=== PATIENT | female | born 1985 | race Caucasian/White ===

== ENCOUNTER 2018-09-07 16:31 | Inpatient (IN) | payer MEDICAID, OTHER ==
--- NOTE | 2018-09-07 17:28 | ED ---
Psychiatric Complaint - HPI Summary HPI Summary: This pt is a 33 y/o female presenting to [facility] for a mental health evaluation. Pt reports she has hx of bipolar disorder and schizophrenia. Pt notes "I need a place to clear my head." Denies any SI or HI thoughts/plan. Pt has been unable to sleep and states "I need a nap or something." Pt is noncompliant with medications for mental health. - History Of Current Complaint Chief Complaint: EDMentalHealth Time Seen by Provider: 09/07/18 17:14 Hx Obtained From: Patient Onset/Duration: Lasting Days, Still Present Timing: Days Severity Currently: Severe Character: Manic Aggravating Factor(s): Medication Non-compliance Alleviating Factor(s): Nothing Related History: Positive For: Prior Psychiatric Issues Has Suicidal: Denies: Thoughts, With A Plan Has Homicidal: Denies: Thoughts, With A Plan - Allergies/Home Medications Allergies/Adverse Reactions: Allergies Allergy/AdvReac Type Severity Reaction Status Date / Time No Known Allergies Allergy Verified 09/07/18 16:49 PMH/Surg Hx/FS Hx/Imm Hx Psychiatric History: Reports: Hx Schizophrenia, Hx Bipolar Disorder Infectious Disease History: No Infectious Disease History: Denies: Traveled Outside the [place] in Last 30 Days - Family History Family History: Mother with paranoid schizophrenia. - Social History Alcohol Use: None Substance Use Type: Reports: None Smoking Status (MU): Never Smoked Tobacco Review of Systems Negative: Fever, Chills Psychological: Other - POS: manic Positive: Anxious. Negative: Depressed, Other - SI or HI thoughts/plan All Other Systems Reviewed And Are Negative: Yes Physical Exam - Summary Physical Exam Summary: Appearance: Well appearing, no pain distress Skin: warm, dry, reflects adequate perfusion Head/face: normal Eyes: EOMI, [place] ENT: normal Neck: supple, nontender Respiratory: CTA, breath sounds present Cardiovascular: RRR, pulses symmetrical Abdomen: nontender, soft Bowel: present Musculoskeletal: normal, strength/ROM intact Neuro: normal, sensory motor intact, A&Ox3 PSYCH: anxious on examination Triage Information Reviewed: Yes Vital Signs On Initial Exam: Initial Vitals Temp Pulse Resp BP Pulse Ox 99 F 145 22 150/95 98 09/07/18 16:44 09/07/18 16:44 09/07/18 16:44 09/07/18 16:44 09/07/18 16:44 Vital Signs Reviewed: Yes Diagnostics - Vital Signs Vital Signs Temp Pulse Resp BP Pulse Ox 09/07/18 16:44 99 F 145 22 150/95 98 - Laboratory Result Diagrams: 09/07/18 17:33 09/07/18 17:33 Lab Statement: Any lab studies that have been ordered have been reviewed, and results considered in the medical decision making process. Re-Evaluation - Re-Evaluation First Eval Re-Evaluation Time: 18:15 Comment: Pt is medically cleared. Course/Dx - Course Assessment/Plan: Pt is a 33 y/o female who presents to the ED for a mental health evaluation. Pt reports she has hx of bipolar disorder and schizophrenia. Pt notes "I need a place to clear my head." Denies any SI or HI thoughts/plan. Noncompliant with medications. Blood work, urinalysis, and toxicology were obtained. Pt was medically cleared. She is waiting for a MHE. Pt will be signed out to Dr. Corey, pending disposition, awaiting MHE. - Differential Dx/Clinical Impression Differential Diagnosis/HQI/PQRI: Positive: Acute Psychosis, Anxiety, Depression , Schizophrenia Provider Diagnosis: Acute psychosis, Depression Discharge - Sign-Out/Discharge Documenting (check all that apply): Sign-Out Patient Signing out patient TO: Naveed Corey - pending MHE and dispo - Discharge Plan Condition: Stable Referrals: No Primary Care Phys,NOPCP [Primary Care Provider] - - Billing Disposition and Condition Condition: STABLE - Attestation Statements Document Initiated by Scribe: Yes Documenting Scribe: Farzana Cristina Provider For Whom Scribe is Documenting (Include Credential): Christiano Roy MD Scribe Attestation: Farzana Pritchett, scribed for Christiano Roy MD on 09/07/18 at 1849. Scribe Documentation Reviewed: Yes Provider Attestation: The documentation as recorded by the Farzana warner accurately reflects the service I personally performed and the decisions made by me, Christiano Roy MD
[2018-09-07 17:46] LABS: ABS Basophils 0 10^3/ul (0-0.2); ABS Eosinophils 0 10^3/ul (0-0.6); ABS Lymphocytes 0.9 10^3/ul (1.0-4.8); ABS Monocytes 0.8 10^3/ul (0-0.8); ABS Neutrophils 8.8 10^3/ul (1.5-7.7); ABS Nucleated RBC 0 10^3/ul; Eosinophil % 0.1 % (0-6); Hematocrit 42 % (35-47); Hemoglobin 14.1 g/dl (12.0-16.0); Lymphocyte % 8.9 % (25-47); Mean Corpuscular HGB Conc 34 g/dl (31-36); Mean Corpuscular Hemoglobin 30 pg (27-31); Mean Corpuscular Volume 88 fL (80-97); Mean Platelet Volume 9.7 um3 (7.4-10.4); Nucleated Red Blood Cells % 0; Platelet Count 293 10^3/ul (150-450); Red Blood Count 4.73 10^6/ul (4.00-5.40); Red Cell Distribution Width 13 % (10.5-15); White Blood Count 10.6 10^3/ul (3.5-10.8)
[2018-09-07 17:51] LABS: Urine Appearance Clear; Urine Blood Negative (Negative); Urine Color Yellow; Urine Ketones Negative (Negative); Urine Protein Negative (Negative); Urine Specific Gravity 1.008 (1.010-1.030); Urine Urobilinogen Negative (Negative)
[2018-09-07 18:01] LABS: EGFR Non-African American 70.3 (>60)
[2018-09-07] MEDS ORDERED: OLANzapine TAB*ODT* 10 MG TAB PO ONE (19:09)
--- NOTE | 2018-09-07 19:13 | ED ---
Progress - Progress Note Progress Note: Patient signed out from Dr. Roy, pending MHE. Per MH drafting layout worker she has a dx of acute psychosis and depression. The pt will be signed out to Dr. Ashford upon shift change pending MHE. Re-Evaluation - Re-Evaluation First Eval Re-Evaluation Time: 18:15 Comment: Pt is medically cleared. Course/Dx - Course Course Of Treatment: Patient signed out from Dr. Roy, pending MHE. Per drafting layout worker she has a dx of acute psychosis and depression. The pt will be signed out to Dr. Ashford upon shift change pending MHE. - Diagnoses Provider Diagnoses: Acute psychosis, Depression Discharge - Sign-Out/Discharge Documenting (check all that apply): Sign-Out Patient Signing out patient TO: Padilla Ashford - Discharge Plan Referrals: No Primary Care Phys,NOPCP [Primary Care Provider] - - Attestation Statements Document Initiated by Scribe: Yes Documenting Scribe: José Licona Provider For Whom Scribe is Documenting (Include Credential): Naveed Corey MD Scribe Attestation: José Pritchett, scribed for Naveed Corey MD on 09/08/18 at 0705.
[2018-09-07] MEDS ORDERED: OLANzapine TAB* 5 MG ONE (19:23)
[2018-09-08] MEDS ORDERED: LORazepam TAB(*) 1 MG PO ONE (02:21)
--- NOTE | 2018-09-08 08:09 | ED ---
Progress - Progress Note Progress Note: Patient signed out from Dr. Corey pending MHE. Pt will be admitted to Dr. Coelho , with a final dx of acute psychosis. Course/Dx - Diagnoses Provider Diagnoses: Acute psychosis - Provider Notifications Discussed Care Of Patient With: Eric Coelho Time Discussed With Above Provider: 10:25 Instructed by Provider To: Admit As Inpatient - Spoke about pt's disposition. Discharge - Sign-Out/Discharge Documenting (check all that apply): Patient Departure - Admit, Receiving Sign- Out Receiving patient FROM: Naveed Corey - Discharge Plan Condition: Stable Disposition: ADMITTED TO [facility] Referrals: No Primary Care Phys,NOPCP [Primary Care Provider] - - Attestation Statements Document Initiated by Scribe: Yes Documenting Scribe: Claudine Sky Provider For Whom Scribe is Documenting (Include Credential): Padilla Ashford MD Scribe Attestation: Claudine Pritchett, scribed for Padilla Ashford MD on 09/08/18 at 1049.
--- NOTE | 2018-09-08 09:19 | PN ---
ED Flex Patient Progress Note Date of Service: 09/07/18 Subjective: This is a 33 year-old F who is pending admission to [facility] / transfer to another psychiatric facility / discharge to home / or being observed secondary to psychosis. Pt. examined in room 22 around 0830. She is sitting on floor wearing a green hat. She offers no complaints. Objective: Vitals: Most recent vital signs documented below. General NAD, Alert and oriented x3. Laboratory: Current laboratory results documented below. Assessment: Pending MHE and disposition. Plan: Pending psychiatric or medical consultation to observe / transfer / admit / discharge will follow up daily . Vital Signs Temp Pulse Resp BP Pulse Ox 97.8 F 114 16 127/86 100 09/08/18 07:30 09/08/18 07:40 09/08/18 07:40 09/08/18 07:40 09/08/18 07:40 Lab Results - Entire Visit 09/07/18 09/07/18 09/07/18 17:36 17:36 17:33 WBC RBC Hgb Hct MCV MCH MCHC RDW Plt Count MPV Neut % (Auto) Lymph % (Auto) [place] % (Auto) Eos % (Auto) Baso % (Auto) Absolute Neuts (auto) Absolute Lymphs (auto) Absolute Monos (auto) Absolute Eos (auto) Absolute Basos (auto) Absolute Nucleated RBC Nucleated RBC % Sodium 137 Potassium 3.4 L Chloride 103 Carbon Dioxide 23 Anion Gap 11 BUN 6 Creatinine 0.93 Est GFR ( Amer) 85.1 Est GFR (Non-Af Amer) 70.3 BUN/Creatinine Ratio 6.5 L Glucose 125 H Calcium 9.5 Total Bilirubin 0.40 AST 26 ALT 33 Alkaline Phosphatase 80 Total Protein 8.1 Albumin 4.4 Globulin 3.7 Albumin/Globulin Ratio 1.2 TSH 1.96 Urine Color Yellow Urine Appearance Clear Urine pH 6.0 Ur Specific [place] 1.008 L Urine Protein Negative Urine Ketones Negative Urine Blood Negative Urine Nitrate Negative Urine Bilirubin Negative Urine Urobilinogen Negative Ur Leukocyte Esterase Negative Urine Glucose Negative Salicylates < 2.50 Urine Opiates Screen None detected Acetaminophen < 15 Ur Barbiturates Screen None detected Ur Phencyclidine Scrn None detected Ur Amphetamines Screen None detected U Benzodiazepines Scrn None detected Urine Cocaine Screen None detected U Cannabinoids Screen None detected Serum Alcohol < 10 10/29/18 17:33 WBC 10.6 RBC 4.73 Hgb 14.1 Hct 42 MCV 88 MCH 30 MCHC 34 RDW 13 Plt Count 293 MPV 9.7 Neut % (Auto) 83.4 H Lymph % (Auto) 8.9 L [place] % (Auto) 7.3 H Eos % (Auto) 0.1 Baso % (Auto) 0.3 Absolute Neuts (auto) 8.8 H Absolute Lymphs (auto) 0.9 L Absolute Monos (auto) 0.8 Absolute Eos (auto) 0 Absolute Basos (auto) 0 Absolute Nucleated RBC 0 Nucleated RBC % 0 Sodium Potassium Chloride Carbon Dioxide Anion Gap BUN Creatinine Est GFR ( Amer) Est GFR (Non-Af Amer) BUN/Creatinine Ratio Glucose Calcium Total Bilirubin AST ALT Alkaline Phosphatase Total Protein Albumin Globulin Albumin/Globulin Ratio TSH Urine Color Urine Appearance Urine pH Ur Specific [place] Urine Protein Urine Ketones Urine Blood Urine Nitrate Urine Bilirubin Urine Urobilinogen Ur Leukocyte Esterase Urine Glucose Salicylates Urine Opiates Screen Acetaminophen Ur Barbiturates Screen Ur Phencyclidine Scrn Ur Amphetamines Screen U Benzodiazepines Scrn Urine Cocaine Screen U Cannabinoids Screen Serum Alcohol
[2018-09-08] MEDS ORDERED: Benzocaine/Menthol LOZ* 1 LOZENGE PO ONE (09:28)
[2018-09-08] MEDS ORDERED: Al Hydrox/Mg Hydrox/Simet LIQ* 30 ML UDC PO PRN (10:37)
[2018-09-08] MEDS ORDERED: Haloperidol TAB* 5 MG PO PRN (10:38)
--- NOTE | 2018-09-08 10:45 | PN ---
ED Flex Patient Progress Note Date of Service: 09/08/18 Subjective: 33 y.o. white female with bipolar history arrives with symptoms of psychosis. Does not appear able to care for herself. Objective: young white female, bizarre appearance and style of dress; hypertalkative, intrusive; denies SI Assessment: Unspecified Psychotic DO Plan: Admit to [facility]. Vital Signs Temp Pulse Resp BP Pulse Ox 97.8 F 114 16 127/86 100 09/08/18 07:30 09/08/18 07:40 09/08/18 07:40 09/08/18 07:40 09/08/18 07:40 Lab Results - Entire Visit 09/07/18 09/07/18 09/07/18 17:36 17:36 17:33 WBC RBC Hgb Hct MCV MCH MCHC RDW Plt Count MPV Neut % (Auto) Lymph % (Auto) [place] % (Auto) Eos % (Auto) Baso % (Auto) Absolute Neuts (auto) Absolute Lymphs (auto) Absolute Monos (auto) Absolute Eos (auto) Absolute Basos (auto) Absolute Nucleated RBC Nucleated RBC % Sodium 137 Potassium 3.4 L Chloride 103 Carbon Dioxide 23 Anion Gap 11 BUN 6 Creatinine 0.93 Est GFR ( Amer) 85.1 Est GFR (Non-Af Amer) 70.3 BUN/Creatinine Ratio 6.5 L Glucose 125 H Calcium 9.5 Total Bilirubin 0.40 AST 26 ALT 33 Alkaline Phosphatase 80 Total Protein 8.1 Albumin 4.4 Globulin 3.7 Albumin/Globulin Ratio 1.2 TSH 1.96 Urine Color Yellow Urine Appearance Clear Urine pH 6.0 Ur Specific [place] 1.008 L Urine Protein Negative Urine Ketones Negative Urine Blood Negative Urine Nitrate Negative Urine Bilirubin Negative Urine Urobilinogen Negative Ur Leukocyte Esterase Negative Urine Glucose Negative Salicylates < 2.50 Urine Opiates Screen None detected Acetaminophen < 15 Ur Barbiturates Screen None detected Ur Phencyclidine Scrn None detected Ur Amphetamines Screen None detected U Benzodiazepines Scrn None detected Urine Cocaine Screen None detected U Cannabinoids Screen None detected Serum Alcohol < 10 09/07/18 17:33 WBC 10.6 RBC 4.73 Hgb 14.1 Hct 42 MCV 88 MCH 30 MCHC 34 RDW 13 Plt Count 293 MPV 9.7 Neut % (Auto) 83.4 H Lymph % (Auto) 8.9 L [place] % (Auto) 7.3 H Eos % (Auto) 0.1 Baso % (Auto) 0.3 Absolute Neuts (auto) 8.8 H Absolute Lymphs (auto) 0.9 L Absolute Monos (auto) 0.8 Absolute Eos (auto) 0 Absolute Basos (auto) 0 Absolute Nucleated RBC 0 Nucleated RBC % 0 Sodium Potassium Chloride Carbon Dioxide Anion Gap BUN Creatinine Est GFR ( Amer) Est GFR (Non-Af Amer) BUN/Creatinine Ratio Glucose Calcium Total Bilirubin AST ALT Alkaline Phosphatase Total Protein Albumin Globulin Albumin/Globulin Ratio TSH Urine Color Urine Appearance Urine pH Ur Specific [place] Urine Protein Urine Ketones Urine Blood Urine Nitrate Urine Bilirubin Urine Urobilinogen Ur Leukocyte Esterase Urine Glucose Salicylates Urine Opiates Screen Acetaminophen Ur Barbiturates Screen Ur Phencyclidine Scrn Ur Amphetamines Screen U Benzodiazepines Scrn Urine Cocaine Screen U Cannabinoids Screen Serum Alcohol
[2018-09-08] MEDS ORDERED: chlorproMAZINE TAB* 50 MG PO PRN (15:32)
[2018-09-08] MEDS: OLANzapine TAB*ODT* 10 MG TAB PO SCH ×2 (18:22→21:54)
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
[2018-09-08] MEDS ORDERED: diPHENhydraMINE PO* 25 MG PO PRN (21:50)
[2018-09-08] MEDS ORDERED: diPHENhydraMINE PO* 25 MG ONE (22:14)
[2018-09-08] MEDS: LORazepam TAB(*) 1 MG PO PRN (23:56)
[2018-09-09] MEDS: GuaiFENesin DM* 5 ML UDC PO PRN ×4 (02:18→20:19)
[2018-09-09] MEDS: Montelukast Sodium TAB* 10 MG PO SCH (08:51)
[2018-09-09] MEDS ORDERED: DESOGESTREL ETHINYL ESTRADIOL PO SCH (09:00)
[2018-09-09] MEDS: Benzocaine/Menthol LOZ* 1 LOZENGE MT PRN ×4 (10:16→21:57)
[2018-09-09] MEDS: OLANzapine TAB*ODT* 5 MG PO SCH (10:16)
[2018-09-09] MEDS ORDERED: Nicotine GUM* 2 MG PO PRN (10:43)
--- NOTE | 2018-09-09 11:58 | PN ---
Subjective - Subjective Date of Service: 09/09/18 Service Type: 64598 Hosp care 25 min moderate complexity Subjective: Patient required prn medications overnight due to intrusiveness, elevated energy and grandiosity. Today, she continues to present as euphoric, hypertalkative with pressured and tangential speech. She reports relief from reddy and readiness to be discharged "after one more night of good sleep." Patient observed to call her boyfriend and ask him to bring her glasses and BCP. Objective - Appearance Appearance: Obese Dysmorphic Features: No Hygiene: Normal Grooming: Disheveled - Behavior Psychomotor Activities: Abnormal-Increased - hyperactivity Exhibits Abnormal Movement: Yes - Attitude and Relatedness Attitude and Relatedness: Needy Eye Contact: Good - Speech Quality: Pressured Latencies: Normal Quantity: Copious - Mood Patient's Decription of Mood: "Great" - Affect Observed Affect: Expansive Affect Consistent with: Euphoria - Thought Process Patient's Thought Process: Disorganized, Loose Associations, Tangential Thought Content: No Passive Wish, No Suicidal Planning, No Homicidal Ideation, No Paranoid Ideation - Sensorium Experiencing Hallucinations: No, Sensorium is Clear Type of Hallucinations: Visual: No, Auditory: No, Command: No - Level of Consciousness Level of Consciousness: Alert Orientation: Yes Intact, Yes Orientated to Time, Yes Orientated to Place, Yes Orientated to Person - Impulse Control Impulse Control: Impaired - Insight and Judgement Insight and Judgement: Impaired - Group Participation Particating in Group Activities: Yes - Medication Management Medication Management Adherence: Yes Assessment - Assessment Merits Inpatient Hospitalization: For Immediate Safety, For Stabilization Inpatient DSM-V Dx: F31.10 Clinical Impression: 33yo woman with know history of bipolar disorder and a significant trauma history. She presented to the ED self-referred from [place]. She presents as euphoric with tangential and pressured speech. She reports efficacy in the past with zyprexa zydis. She merits hospitalization for immediate safety and stabilization. MHU: Problem List - Patient Problems (1) Bipolar 1 disorder, mixed, severe Current Visit: Yes Status: Acute Priority: High Code(s): F31.63 - BIPOLAR DISORD, CRNT EPSD MIXED, SEVERE, W/O PSYCH FEATURES SNOMED Code(s): 497674455379 Comment: titrate olanzapine ODT and utilize prn medications for agitation Plan - Plan Treatment Plan: Name: FIOR BANDA Birthdate: 1985 [id number] continue acute intensive psychiatric treatment. titrate olanzapine zydis and utilize prn medications for agitation discharge planning to include significant other and referral to outpatient providers. Continued Medication Management: Start Medication Medications: Current Medications Acetaminophen (Tylenol Tab*) 650 mg PO Q4H PRN PRN Reason: for pain; or Temp >101 F Al Hydrox/Mg Hydrox/Simethicone (Maalox Plus*) 30 ml PO Q4H PRN PRN Reason: INDIGESTION Chlorpromazine HCl (Thorazine Tab*) 50 mg PO Q4H PRN PRN Reason: AGITATION Last Admin: 09/08/18 18:38 Dose: 50 mg Diphenhydramine HCl (Benadryl Po*) 25 mg PO ONCE PRN PRN Reason: INSOMNIA Guaifenesin/Dextromethorphan (Robitussin Dm*) 5 ml PO Q6H PRN PRN Reason: COUGH Last Admin: 09/09/18 08:51 Dose: 5 ml Lorazepam (Ativan Tab(*)) 1 mg PO Q6H PRN PRN Reason: ANXIETY Last Admin: 09/08/18 23:56 Dose: 1 mg Montelukast Sodium (Singulair Tab*) 10 mg PO DAILY [facility] Last Admin: 09/09/18 08:51 Dose: 10 mg Nicotine Polacrilex (Nicotine Gum*) 2 mg PO Q2H PRN PRN Reason: CRAVING Non-Formulary Medication (Desogestrel-Ethinyl Estradiol [Jagdisheber 28 Day Tablet] ) 1 tab PO DAILY [facility] Olanzapine (Zyprexa *Odt*) 10 mg PO BEDTIME [facility] Last Admin: 09/08/18 21:54 Dose: Not Given Olanzapine (Zyprexa * Tab Odt) 5 mg PO DAILY [facility] Last Admin: 09/09/18 10:16 Dose: 5 mg Throat Lozenges (Chloraseptic Yamile*) 1 yamile MT Q2HR PRN PRN Reason: SORE THROAT Last Admin: 09/09/18 10:16 Dose: 1 yamile - Discharge Plan Discharge Plan: Outpatient Follow Up Outpatient Program: [facility]
--- NOTE | 2018-09-09 16:05 | PN ---
MHU: Group Therapy Note - Service Type Service Type: [id number] Group Psychotherapy - Group Participation Patient Participating in Group: Yes Level of Group Participation: Attentive, Non-participatory - Matilda attended group and was quite attentive. She did not stay for the full group, however, and wandered out the door.
[2018-09-09] MEDS: Acetaminophen TAB* 325 MG PO PRN (17:27)
[2018-09-09] MEDS: OLANzapine TAB*ODT* 10 MG TAB PO SCH (20:19)
[2018-09-09] MEDS: DESOGESTREL ETHINYL ESTRADIOL PO SCH (21:22)
[2018-09-10] MEDS: Benzocaine/Menthol LOZ* 1 LOZENGE MT PRN ×8 (00:03→23:33)
[2018-09-10] MEDS: LORazepam TAB(*) 1 MG PO PRN ×2 (01:06→23:59)
[2018-09-10] MEDS: GuaiFENesin DM* 5 ML UDC PO PRN ×5 (02:03→22:46)
[2018-09-10] MEDS: Montelukast Sodium TAB* 10 MG PO SCH (10:11)
[2018-09-10] MEDS ORDERED: OLANzapine TAB*ODT* 5 MG PO ONE (10:12)
[2018-09-10] MEDS: OLANzapine TAB*ODT* 5 MG PO SCH (10:14)
[2018-09-10] MEDS: Acetaminophen TAB* 325 MG PO PRN (11:56)
--- NOTE | 2018-09-10 15:24 | PN ---
Subjective - Subjective Date of Service: 09/10/18 Service Type: [id number] Hosp care 25 min moderate complexity Subjective: Patient exhibits elevated and irritable mood. She continues to have pressured and tangential speech. She is hypersexual in topic. She is dressed in various layers of clothing and changes items throughout the day. She asks screen writer to call her boyfriend in order to set up a time for him to meet with team and learn more about mental illness. Video Editor phoned Jimmy Simpson at [phone]. He agreed to meet tomorrow, 09/11 at 1pm. Objective - Appearance Appearance: Obese Dysmorphic Features: No Hygiene: Normal Grooming: Disheveled - Behavior Psychomotor Activities: Normal Exhibits Abnormal Movement: No - Attitude and Relatedness Attitude and Relatedness: Irritable Eye Contact: Good - Speech Quality: Pressured Latencies: Normal Quantity: Copious - Mood Patient's Decription of Mood: "Good" - Affect Observed Affect: Expansive Affect Consistent with: Euphoria - Thought Process Patient's Thought Process: Disorganized, Loose Associations, Tangential Thought Content: No Passive Wish, No Suicidal Planning, No Homicidal Ideation, No Paranoid Ideation - Sensorium Experiencing Hallucinations: No, Sensorium is Clear Type of Hallucinations: Visual: No, Auditory: No, Command: No - Level of Consciousness Level of Consciousness: Alert Orientation: Yes Intact, Yes Orientated to Time, Yes Orientated to Place, Yes Orientated to Person - Impulse Control Impulse Control: Impaired - Insight and Judgement Insight and Judgement: Impaired - Group Participation Particating in Group Activities: Yes - Medication Management Medication Management Adherence: Partial Assessment - Assessment Merits Inpatient Hospitalization: For Immediate Safety, For Stabilization Inpatient DSM-V Dx: F31.10 Clinical Impression: 33yo woman with know history of bipolar disorder and a significant trauma history. She presented to the ED self-referred from [place]. She presents as euphoric with tangential and pressured speech. She reports efficacy in the past with zyprexa zydis. She merits hospitalization for immediate safety and stabilization. MHU: Problem List - Patient Problems (1) Bipolar 1 disorder, mixed, severe Current Visit: Yes Status: Acute Priority: High Code(s): F31.63 - BIPOLAR DISORD, CRNT EPSD MIXED, SEVERE, W/O PSYCH FEATURES SNOMED Code(s): 039899351869 Comment: titrate olanzapine ODT and utilize prn medications for agitation Plan - Plan Treatment Plan: Name: FIOR BANDA Birthdate: 1985 [id number] continue acute intensive psychiatric treatment. titrate olanzapine zydis and utilize prn medications for agitation discharge planning to include significant other and referral to outpatient providers. Continued Medication Management: Start Medication Medications: Current Medications Acetaminophen (Tylenol Tab*) 650 mg PO Q4H PRN PRN Reason: for pain; or Temp >101 F Last Admin: 09/10/18 11:56 Dose: 650 mg Al Hydrox/Mg Hydrox/Simethicone (Maalox Plus*) 30 ml PO Q4H PRN PRN Reason: INDIGESTION Chlorpromazine HCl (Thorazine Tab*) 50 mg PO Q4H PRN PRN Reason: AGITATION Last Admin: 09/08/18 18:38 Dose: 50 mg Diphenhydramine HCl (Benadryl Po*) 25 mg PO ONCE PRN PRN Reason: INSOMNIA Last Admin: 09/09/18 17:29 Dose: 25 mg Guaifenesin/Dextromethorphan (Robitussin Dm*) 10 ml PO Q4H PRN PRN Reason: COUGH Last Admin: 09/10/18 14:40 Dose: 10 ml Lorazepam (Ativan Tab(*)) 1 mg PO Q6H PRN PRN Reason: ANXIETY Last Admin: 09/10/18 01:06 Dose: 1 mg Montelukast Sodium (Singulair Tab*) 10 mg PO DAILY [facility] Last Admin: 09/10/18 10:11 Dose: 10 mg Nicotine Polacrilex (Nicotine Gum*) 2 mg PO Q2H PRN PRN Reason: CRAVING Pto Nf Med* ( Desogestrel-Ethinyl Estradiol [Mayeber 28 Day Tablet] 1 Tab ) 1 tab PO 2100 [facility] Last Admin: 09/09/18 21:22 Dose: 1 tab Olanzapine (Zyprexa *Odt*) 10 mg PO BID [facility] Throat Lozenges (Chloraseptic Yamile*) 1 yamile MT Q2HR PRN PRN Reason: SORE THROAT Last Admin: 09/10/18 13:54 Dose: 1 yamile - Discharge Plan Discharge Plan: Outpatient Follow Up Outpatient Program: [facility]
[2018-09-10] MEDS: DESOGESTREL ETHINYL ESTRADIOL PO SCH (21:57)
[2018-09-10] MEDS: OLANzapine TAB*ODT* 10 MG TAB PO SCH (21:59)
[2018-09-11] MEDS: GuaiFENesin DM* 5 ML UDC PO PRN ×3 (05:13→12:43)
[2018-09-11] MEDS: Benzocaine/Menthol LOZ* 1 LOZENGE MT PRN ×5 (05:35→15:43)
[2018-09-11 08:01] VITALS: BP 122/66
[2018-09-11] MEDS: OLANzapine TAB*ODT* 10 MG TAB PO SCH (09:12)
[2018-09-11] MEDS: Montelukast Sodium TAB* 10 MG PO SCH (09:12)
== END 2018-09-11 16:15 | disposition home or self-care (01) | DRG 753 ==
LOC: ED 16:31 → BSU 09-08 10:37
PROVIDERS: ADMIT Psychiatry & Neurology Psychiatry; ATTEND Psychiatry & Neurology Psychiatry
PROC: GZHZZZZ Group Psychotherapy (ICD-10-PCS; principal; 2018-09-09)
DX: F31.63 Bipolar disorder, current episode mixed, severe, without psychotic features (principal); Z62.810 Personal history of physical and sexual abuse in childhood; Z62.812 Personal history of neglect in childhood; J30.2 Other seasonal allergic rhinitis; E66.9 Obesity, unspecified; E07.9 Disorder of thyroid, unspecified; F12.90 Cannabis use, unspecified, uncomplicated; F43.10 Post-traumatic stress disorder, unspecified; F60.3 Borderline personality disorder; F20.9 Schizophrenia, unspecified; Z23 Encounter for immunization; Z72.89 Other problems related to lifestyle; Z72.0 Tobacco use; Z68.38 Body mass index [BMI] 38.0-38.9, adult; Z88.8 Allergy status to other drugs, medicaments and biological substances; Z81.8 Family history of other mental and behavioral disorders
CPT/HCPCS: 36415; 80053; 80061; 80307; 80320; 80329; 81003; 83036; 84443; 85025; 90472; 90686; 90853; 99222; 99232; 99238; 99284; A9270-GY; G0008; G0480

== ENCOUNTER 2020-04-28 11:44 | Inpatient (IN) ==
[2020-04-28 12:48] LABS: ABS Lymphocytes 1.5 10^3/ul (1.0-4.8); ABS Monocytes 0.7 10^3/ul (0-0.8); Eosinophil % 0.2 %; Hematocrit 43 % (35-47); Hemoglobin 14.2 g/dL (12.0-16.0); Lymphocyte % 13.4 %; Mean Corpuscular HGB Conc 33 g/dL (31-36); Mean Corpuscular Hemoglobin 29 pg (27-31); Mean Corpuscular Volume 89 fL (80-97); Mean Platelet Volume 8.7 fL (7.4-10.4); Platelet Count 264 10^3/uL (150-450); Red Blood Count 4.86 10^6 /uL (3.70-4.87); Red Cell Distribution Width 13 % (10-15); White Blood Count 11.2 10^3/uL (3.5-10.8)
[2020-04-28 13:05] LABS: ALT 18 U/L (7-52); AST 18 U/L (13-39); Albumin 4.7 g/dL (3.2-5.2); Albumin/Globulin Ratio 1.3 (1-3); Alkaline Phosphatase 95 U/L (34-104); Anion Gap 10 mmol/L (2-11); BUN/Creatinine Ratio 9.9 (8-20); Blood Urea Nitrogen 9 mg/dL (6-24); CO2 Carbon Dioxide 24 mmol/L (22-32); Chloride 103 mmol/L (101-111); EGFR African American 86.1 (>60); EGFR Non-African American 71.2 (>60); Globulin 3.7 g/dL (2-4); Glucose 104 mg/dL (70-100); Potassium 3.5 mmol/L (3.5-5.0); Sodium 137 mmol/L (135-145); Total Protein 8.4 g/dL (6.4-8.9)
[2020-04-28 13:07] LABS: Urine Benzodiazepine Screen None Detected (None Detect); Urine Opiates Screen None Detected (None Detect)
[2020-04-28 13:14] LABS: Urine Appearance Clear; Urine Bilirubin Negative (Negative); Urine Blood Negative (Negative); Urine Color Straw; Urine Glucose Negative (Negative); Urine Ketones Negative (Negative); Urine Nitrite Negative (Negative); Urine Protein Negative (Negative); Urine Specific Gravity 1.003 (1.010-1.030); Urine Urobilinogen Negative (Negative)
[2020-04-28 13:25] LABS: Acetaminophen < 15 mcg/mL; Alcohol, S < 10 mg/dL (<10); Salicylate < 2.50 mg/dL (<30)
[2020-04-28] MEDS ORDERED: Al Hydrox/Mg Hydrox/Simet LIQ 30 ML UDC PO PRN (13:45)
[2020-04-28] MEDS: Benzocaine/Menthol LOZ PO PRN ×2 (20:47→22:50)
[2020-04-28] MEDS: OLANzapine 5 mg TAB*ODT PO SCH (22:06)
[2020-04-29] MEDS: Benzocaine/Menthol LOZ PO PRN ×6 (01:51→21:49)
[2020-04-29] MEDS: LORazepam 1 mg TAB (*) PO PRN ×2 (03:31→22:49)
[2020-04-29] MEDS: Nicotine GUM 2MG FRUIT FLAVOR PO PRN ×3 (17:42→23:02)
[2020-04-29] MEDS: OLANzapine 5 mg TAB*ODT PO SCH (20:10)
[2020-04-30] MEDS: Benzocaine/Menthol LOZ PO PRN ×7 (01:11→21:28)
[2020-04-30] MEDS: Nicotine GUM 2MG FRUIT FLAVOR PO PRN ×6 (08:34→22:19)
[2020-04-30] MEDS: OLANzapine 5 mg TAB*ODT PO SCH (21:26)
[2020-04-30] MEDS: LORazepam 1 mg TAB (*) PO PRN (23:41)
[2020-05-01] MEDS: Benzocaine/Menthol LOZ PO PRN ×6 (00:13→19:17)
[2020-05-01] MEDS: Nicotine GUM 2MG FRUIT FLAVOR PO PRN ×6 (01:37→21:31)
[2020-05-01 11:07] LABS: HCG Pregnancy < 0.60 mIU/mL
[2020-05-01] MEDS ORDERED: OLANzapine 5 mg TAB*ODT PO SCH (21:00)
[2020-05-01] MEDS: LORazepam 1 mg TAB (*) PO PRN (21:44)
[2020-05-02] MEDS: Nicotine GUM 2MG FRUIT FLAVOR PO PRN ×6 (06:11→19:39)
[2020-05-02] MEDS: Benzocaine/Menthol LOZ PO PRN ×4 (08:20→19:39)
[2020-05-02] MEDS ORDERED: diPHENhydraMINE 25 mg TAB ONE (18:24)
[2020-05-02] MEDS ORDERED: diPHENhydraMINE IV 50 MG/ML 1 ml VIAL (BENADRYL) ONE (19:08)
[2020-05-02] MEDS ORDERED: diPHENhydraMINE IV 50 MG/ML 1 ml VIAL (BENADRYL) IM ONE (19:40)
[2020-05-03] MEDS: Nicotine GUM 2MG FRUIT FLAVOR PO PRN ×4 (00:08→13:36)
[2020-05-03] MEDS: Benzocaine/Menthol LOZ PO PRN ×3 (01:41→10:59)
[2020-05-03 10:01] VITALS: BP 151/74
[2020-05-03 14:05] LABS: HDL Cholesterol 58.5 mg/dL
== END 2020-05-03 15:00 | disposition home or self-care (01) | DRG 753 ==
LOC: ED 11:44 → BSU 13:45 → ED 15:27 → BSU 05-01 17:48
PROVIDERS: ADMIT Psychiatry & Neurology Psychiatry; ATTEND Psychiatry & Neurology Psychiatry

== ENCOUNTER 2023-11-23 22:25 | Inpatient (IN) ==
[2023-11-23 23:13] LABS: Urine Appearance Clear; Urine Bilirubin Negative (Negative); Urine Blood Negative (Negative); Urine Color Colorless; Urine Glucose Negative (Negative); Urine Ketones Negative (Negative); Urine Nitrite Negative (Negative); Urine Protein Negative (Negative); Urine Specific Gravity 1.001 (1.002-1.030); Urine Urobilinogen Negative (Negative)
[2023-11-23 23:25] LABS: Urine Benzodiazepine Screen None Detected (None Detect); Urine Cannabinoids Screen None Detected (None Detect); Urine Opiates Screen None Detected (None Detect)
[2023-11-24] MEDS ORDERED: Al Hydrox/Mg Hydrox/Simet LIQ 30 ML UDC PO PRN (01:37)
[2023-11-24 06:15] VITALS: BP 130/78
[2023-11-24 08:18] LABS: ABS Basophils 0.1 10^3/uL (0.0-0.1); ABS Eosinophils 0.1 10^3/uL (0.0-0.5); ABS Lymphocytes 2.4 10^3/uL (1.0-4.8); ABS Monocytes 0.9 10^3/uL (0.0-0.9); ABS Neutrophils 7.5 10^3/uL (1.5-7.6); Eosinophil % 0.9 %; Hematocrit 38.2 % (35-45); Hemoglobin 12.9 g/dL (11.5-14.3); Mean Corpuscular Hemoglobin 29.3 pg (27-33); Mean Corpuscular Hgb Conc 33.6 g/dL (31-36); Mean Corpuscular Volume 87.2 fL (80-97); Mean Platelet Volume 8.8 fL (7.5-11.2); Platelet Count 303 10^3/uL (150-450); Red Blood Count 4.38 10^6/uL (3.63-4.92); Red Cell Distribution Width 13.4 % (12-17)
[2023-11-24 08:36] LABS: ALT 22 U/L (7-52); AST 16 U/L (13-39); Albumin 4.4 g/dL (3.2-5.2); Albumin/Globulin Ratio 1.4 (1-3); Alkaline Phosphatase 79 U/L (35-149); Anion Gap 10 mmol/L (2-16); Blood Urea Nitrogen 15 mg/dL (6-24); CO2 Carbon Dioxide 23 mmol/L (22-32); Calcium 9.2 mg/dL (8.6-10.3); Chloride 105 mmol/L (101-111); Creatinine, Serum 0.87 mg/dL (0.51-0.95); Globulin 3.1 g/dL (2-4); Glucose 105 mg/dL (70-100); Sodium 138 mmol/L (135-145); Total Bilirubin 0.6 mg/dL (0.2-1.0); Total Protein 7.5 g/dL (6.4-8.9); eGFR CKD-EPI 88.5 (>60)
[2023-11-24 08:42] LABS: HCG Pregnancy < 0.60 mIU/mL
[2023-11-24 08:50] LABS: TSH Ultra Thyroid Stim Horm 4.17 mcIU/mL (0.34-5.60)
[2023-11-24] MEDS: Vitamin THERAPEUTIC TAB PO SCH (12:31)
[2023-11-24] MEDS: OLANZapine 5 mg TAB *ODT PO PRN ×2 (16:42→20:17)
[2023-11-25] MEDS: Vitamin THERAPEUTIC TAB PO SCH (08:06)
[2023-11-25] MEDS: OLANZapine 5 mg TAB *ODT PO PRN (10:57)
[2023-11-25] MEDS ORDERED: OLANZapine 10 mg TAB*ODT PO SCH ×2 (12:15→21:00)
== END 2023-11-25 17:05 | disposition home or self-care (01) | DRG 885 ==
LOC: ED 22:25 → EDHOLD 11-24 01:37 → BSU 11-24 03:10
PROVIDERS: ADMIT Psychiatry & Neurology Psychiatry; ATTEND Psychiatry & Neurology Psychiatry